=== PATIENT | female | born 1990 | race African-American/Black ===

== ENCOUNTER 2023-06-15 14:05 | Emergency (ER) | payer SELFPAY ==
[~2023-06-15] VITALS: Ht 180.3 cm; Wt 90.9 kg
[~2023-06-15 14:05] MED LIST: NOCURR
[2023-06-15 14:08] VITALS: TEMP 98.6
[2023-06-15] MEDS ORDERED: LIDOCAINE 5% TRANSDERMAL PATCH TD ONE (15:30)
[2023-06-15] MEDS ORDERED: KETOROLAC TROMETHAMINE 30 MG/ML VIAL IM ONE (15:30)
[2023-06-15 17:19] VITALS: BP 124/82; PULSE 72; RESP 18
== END 2023-06-15 17:21 | disposition home or self-care (01) ==
LOC: EMS 14:32
DX: S46.912A Strain of unspecified muscle, fascia and tendon at shoulder and upper arm level, left arm, initial encounter (principal); E11.9 Type 2 diabetes mellitus without complications; F17.210 Nicotine dependence, cigarettes, uncomplicated; V49.9XXA Car occupant (driver) (passenger) injured in unspecified traffic accident, initial encounter; Y93.89 Activity, other specified; Y92.89 Other specified places as the place of occurrence of the external cause; Y99.8 Other external cause status
CPT/HCPCS: 72040; 99283; J1885